=== PATIENT | female | born 1955 | race Caucasian/White ===

== ENCOUNTER 2018-12-31 07:02 | Emergency (ER) | payer BC ==
--- OUTSIDE RECORDS SUMMARY | 2018-12-31 07:14 | XMS REPORT | Continuity of Care Document ---
:1955 External Reference #:[id number] Author Name Debora Matos O.D. Address [address] [facility] [place] [address] Care Team Providers Name Role Phone Deboar Matos O.D. Care Team Information Orthotics Prosthetics Assistant Unavailable Payers Date Identification Numbers Payment Provider Subscriber Policy Number: [id number] [facility] Essence Kevin PayID: [id number] [id number] [place] [id number] Problems Active Problems Provider Date Gastroesophageal reflux disease Onset: Knee pain Onset: Lupus vulgaris Onset: Combined form of senile cataract Debora Matos O.D. Onset: 12/02/2018 Vitreous degeneration Debora Matos O.D. 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 Solution Tramadol HCL Unknown 50mg Tablets Estradiol Unknown 0.025mg/24HR Patches Biweek Prilosec OTC Unknown 20mg Tablets DR Keith as needed Unknown 10mg Capsules Naproxen as needed Unknown 250mg Tablets Procedures Date Code Description Status 12/02/2018 76033 New Patient Comprehensive Exam Completed Plan of Treatment 12/23/2018 - Debora Matos O.D.H43.813 Vitreous degeneration, bilateralComments:You have a Posterior Vitreous Detachment in your left eye. If you have any changes in your floaters or flashing lights, please contact this office.Follow up:1 Year Follow Up You can expect to have your eyes dilated at your next visit. If Dr. Matos orders any additional testing, it may require extra time. We recommend that you bring sunglasses, as dilation drops often make you light sensitive until they wear off. We always recommend you bring someone to drive you home if you are uncomfortable driving with your eyes dilated. If you have any questions before your next visit, feel free to call our office at .H25.813 Combined forms of age-related cataract, bilateralComments:You have been diagnosed with cataracts. If you are happy with your vision as it is now, then we willsee you at your next scheduled appointment. If you feel like your vision is getting worse before your scheduled appointment, please call Deisy at [phone].
--- OUTSIDE RECORDS SUMMARY | 2018-12-31 07:14 | XMS REPORT | Continuity of Care Document ---
:1955 External Reference #:[id number] Author Name Debora Matos O.D. Address [address] [facility] [place] [address] Care Team Providers Name Role Phone Essence Samuels O.D. Care Team Information Mutuel Clerk Unavailable Payers Date Identification Numbers Payment Provider Subscriber Policy Number: [id number] [facility] Essence Kevin PayID: [id number] [id number] [place] [id number] Problems Active Problems Provider Date Gastroesophageal reflux disease Onset: Knee pain Onset: Lupus vulgaris Onset: Combined form of senile cataract Debora Matos O.D. Onset: 12/02/2018 Vitreous degeneration Debora Matos O.D. 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 ETOH Use Rarely consumes alcohol Tobacco Use Start: Unknown Patient has never smoked Recreational Drug Use Denies Drug Use Smoking Status Reviewed: 12/02/18 Patient has never smoked Allergies, Adverse Reactions, Alerts Active Allergies Reaction Severity Comments Date Penicillin 12/02/2018 Compazine 12/02/2018 Medications Active Medications SIG Qnty Indications Ordering Provider Date Naprosyn 250mg Unknown Tablets Tramadol HCL Unknown 50mg Tablets Estradiol Unknown 0.025mg/24HR Patches Biweek Prilosec OTC Unknown 20mg Tablets DR Plan of Treatment 12/02/2018 - Debora Matos O.D.H43.813 Vitreous degeneration, bilateralComments:You have a Posterior Vitreous Detachment in your left eye. If you have any changes in your floaters or flashing lights, please contact this office.Follow up:3 Week Follow Up You can expect to have [...] feel free to call our office at .H22.813 Combined forms of age-related cataract, bilateralComments:You have been diagnosed with cataracts. If you are happy with your vision as it is now, then we willsee you at your next scheduled appointment. If you feel like your vision is getting worse before your scheduled appointment, please call Deisy at [phone].
[2018-12-31 07:16] VITALS: BP 130/80
--- NOTE | 2018-12-31 07:32 | UC ---
Respiratory Complaint HPI - HPI Summary HPI Summary: 1 WEEK OF WORSENING PRODUCTIVE COUGH, CONGESTION, ST, FATIGUE. NO FEVER, N/V. DENIES SOB OR WHEEZE. - History of Current Complaint Chief Complaint: UCGeneralIllness Stated Complaint: COUGH Time Seen by Provider: 12/31/18 07:13 Hx Obtained From: Patient Onset/Duration: Gradual Onset, Lasting Days, Still Present Timing: Constant Severity Initially: Moderate Severity Currently: Moderate Pain Intensity: 0 Pain Scale Used: 0-10 Numeric Character: Cough: Productive Aggravating Factors: Nothing Alleviating Factors: Nothing Associated Signs And Symptoms: Positive: URI, Nasal Congestion. Negative: Dyspnea, Fever, Chills, Pleuritic Chest Pain, Wheezing - Allergies/Home Medications Allergies/Adverse Reactions: Allergies Allergy/AdvReac Type Severity Reaction Status Date / Time Penicillins Allergy Unknown Verified 12/31/18 07:17 Reaction Details prochlorperazine AdvReac shaking, Verified 12/31/18 07:17 [From Compazine] elevated blood pressure Home Medications: Home Medications Estradiol [Divigel] PRN 12/31/18 [History] Naproxen [Naproxen 250 mg tab] 1 tab PO DAILY PRN 12/31/18 [History Confirmed ] Omeprazole CAP (NF) [Prilosec CAP* 20 MG] 1 tab PO DAILY PRN 12/31/18 [History Confirmed 12/31/18] traMADol TAB* [Ultram*] 1 tab PO PRN 12/31/18 [History] PMH/Surg Hx/FS Hx/Imm Hx - Additional Past Medical History Additional PMH: LUPUS Other Cancer History: SKIN CANCER - Surgical History Surgical History: Yes Surgery Procedure, Year, and Place: appendectomy. tonsillectomy. hysterectomy. left breast lump biopsy - Family History Known Family History: Positive: Non-Contributory - Social History Alcohol Use: Occasionally Substance Use Type: None Smoking Status (MU): Never Smoked Tobacco Review of Systems All Other Systems Reviewed And Are Negative: Yes Constitutional: Positive: Fatigue ENT: Positive: Sore Throat, Ear Ache, Nasal Discharge Respiratory: Positive: Cough Cardiovascular: Positive: Negative Gastrointestinal: Positive: Negative Physical Exam Triage Information Reviewed: Yes Appearance: Well-Appearing, No Pain Distress, Well-Nourished Vital Signs: Initial Vital Signs Temp 98.6 F 12/31/18 07:12 Pulse 93 12/31/18 07:12 Resp 18 12/31/18 07:12 BP 130/80 12/31/18 07:12 Pulse Ox 93 12/31/18 07:12 Vital Signs Reviewed: Yes Eyes: Positive: Conjunctiva Clear ENT: Positive: Hearing grossly normal, Pharyngeal erythema, TMs normal Neck: Positive: Supple, Nontender, No Lymphadenopathy Respiratory Exam: Normal Cardiovascular Exam: Normal Abdomen Description: Positive: Soft Musculoskeletal: Positive: No Edema Neurological: Positive: Alert Psychological: Positive: Age Appropriate Behavior Skin: Negative: Rashes Diagnostics - Radiology CXR Radiology Interpretation Completed By: Radiologist Summary of Radiographic Findings: NO EVIDENCE FOR ACTIVE CARDIOPULMONARY DISEASE. Respiratory Course/Dx - Course Course Of Treatment: CHEST X-RAY TODAY UNREMARKABLE. PATIENT'S OXYGEN LEVELS SLIGHTLY LOW ON EXAM RANGING FROM 93-95%. SHE DENIES ANY HISTORY OF SMOKING OR ANY UNDERLYING LUNG DISORDER. I HAVE DISCUSSED WITH PATIENT THE POSSIBILITY THAT THIS STILL MAY BE VIRAL AND SIMPLY NEEDS MORE TIME TO IMPROVE HOWEVER GIVEN HER FINDING OF SLIGHTLY LOW OXYGEN WELL 1 WEEK OF WORSENING ILLNESS WILL GO AHEAD AND COVER WITH ANTIBIOTICS. I HAVE ENCOURAGED HER TO RECHECK HER OXYGEN LEVELS NEXT WEEK WHEN SHE IS FEELING IMPROVED TO MAKE SURE THEY HAVE NORMALIZED. IF THEY'RE PERSISTENTLY LOW SHE WILL FOLLOW-UP WITH HER PCP BACK HOME IN [place] FOR FURTHER EVALUATION. TO THE ER WITHOUT FAIL IF HER SYMPTOMS WORSEN. - Differential Dx/Diagnosis Provider Diagnosis: Acute bronchitis Discharge - Sign-Out/Discharge Documenting (check all that apply): Patient Departure All imaging exams completed and their final reports reviewed: Yes - Discharge Plan Condition: Stable Disposition: HOME Prescriptions: Azithromycin 500 mg PO DAILY #5 tab Patient Education Materials: Acute Bronchitis (ED) Referrals: [facility] [Outside] - 1 Week Additional Instructions: CHEST XRAY TODAY UNREMARKABLE. YOUR SYMPTOMS MAY BE VIRALLY MEDIATED BUT GIVEN THE LENGTH OF TIME YOU HAVE BEEN ILL WE WILL COVER YOU WITH ANTIBIOTICS. IF YOU START THE MEDICINE BE SURE TO TAKE IT FOR THE FULL COURSE. REST, HYDRATE, OTC MEDS NEEDED. SEEK FOLLOW-UP IF YOU ARE NOT IMPROVING OVER THE NEXT 1-2 WEEKS. BE SURE TO FOLLOW-UP ONCE YOU ARE FEELING BETTER TO RECHECK YOUR OXYGEN LEVELS THEY WERE SLIGHTLY LOW TODAY. 93-95%. GO TO ER WITHOUT FAIL IF YOU DEVELOP FEVER, SHORTNESS OF BREATH, CHEST PAIN, NAUSEA, SWEATS, DIZZINESS OR ANY OTHER CONCERNING SYMPTOMS. - Billing Disposition and Condition Condition: STABLE Disposition: Home
== END 2018-12-31 08:04 | disposition home or self-care (01) ==
LOC: UCEAST 07:02
DX: J20.9 Acute bronchitis, unspecified (principal); Z85.828 Personal history of other malignant neoplasm of skin
CPT/HCPCS: 71046; 99212; G0463